=== PATIENT | female | born 1980 | race Caucasian/White ===

== ENCOUNTER 2017-06-02 08:36 | Emergency (ER) | payer OTHER ==
[2017-06-02 08:46] VITALS: BP 125/60
[2017-06-02] MEDS ORDERED: Tetracaine 0.5% OPTH.SOL 4 ML* 1 DROP BTL LEFT EYE ONE (08:50)
[2017-06-02] MEDS ORDERED: Fluorescein Sod TOPICAL 0.6* 0.6 MG TEST OPHTHALMIC ONE (08:50)
--- NOTE | 2017-06-02 09:03 | UC ---
Eye Complaint HPI - History of Current Complaint Chief Complaint: UCEye Stated Complaint: eye irritation Time Seen by Provider: 06/02/17 08:47 Hx Obtained From: Patient Hx Last Menstrual Period: 05/29/17 ?: No Onset/Duration: Sudden Onset - awoke in night with pain L eye "like there is something in it" Timing: Constant Severity Initially: Moderate Severity Currently: Moderate Pain Intensity: 6 Location of Injury: Eye Lid (upper) Character: Sharp, Foreign Body Sensation Aggravating Factor(s): Light, Blinking Alleviating Factor(s): Darkness, Other - keeping eye closed Associated Signs And Symptoms: Positive: Photophobia, Drainage (Clear). Negative: Vision Impairment Left - Allergies/Home Medications Allergies/Adverse Reactions: Allergies Allergy/AdvReac Type Severity Reaction Status Date / Time No Known Allergies Allergy Verified 06/02/17 08:43 PMH/Surg Hx/FS Hx/Imm Hx Previously Healthy: Yes - Surgical History Surgical History: Yes Surgery Procedure, Year, and Place: tonsilectomy age 18 - Family History Known Family History: Positive: None - Social History Occupation: Employed Full-time - teacher Lives: With Family Alcohol Use: Weekly Substance Use Type: Marijuana Smoking Status (MU): Light Every Day Tobacco Smoker Type: Cigarettes Amount Used/How Often: not everyday Length of Time of Smoking/Using Tobacco: 10 years Have You Smoked in the Last Year: Yes Cessation Counseling: Counseled 3+Min - 10 Min - Immunization History Most Recent Tetanus Shot: unknown ? not in past 4 -5 years Review of Systems Constitutional: Negative Skin: Negative Eyes: Photophobia, Other - pain OS ENT: Negative Respiratory: Negative Cardiovascular: Negative Neurological: Negative Psychological: Negative Is Patient Immunocompromised?: No All Other Systems Reviewed And Are Negative: Yes Physical Exam Triage Information Reviewed: Yes Appearance: Well-Appearing, Well-Nourished Vital Signs: Initial Vital Signs Temp 98.8 F 06/02/17 08:43 Pulse 58 06/02/17 08:43 Resp 16 06/02/17 08:43 BP 125/60 06/02/17 08:43 Pulse Ox 99 06/02/17 08:43 Vital Signs Reviewed: Yes Eyes: Positive: Conjunctiva Inflamed - OS, cannot open eye due to pain. denies decreased vision other than tearing making it blurry Respiratory Exam: Normal Cardiovascular Exam: Normal Neurological Exam: Normal Neurological: Positive: Alert Psychological Exam: Normal Skin Exam: Normal Skin: Negative: rashes Procedures - Eye Procedure Alcaine Drops Administered: Yes - fulglow used with gonzales lamp and reveals linear corneal abr. mid L cornea Eye Irrigated w/ Saline (ccs): 60 - no FO detected Eye Complaint Course/Dx - Differential Dx/Diagnosis Differential Diagnosis/HQI/PQRI: Corneal Abrasion, Foreign Body Provider Diagnoses: corneal abrasion L eye Discharge - Discharge Plan Condition: Improved Disposition: HOME Prescriptions: Erythromycin OPHTH.OINT* [Ilotycin OPHTH.OINT*] 1 applic LEFT EYE BEDTIME #1 tube Patient Education Materials: Corneal Abrasion (ED) Referrals: Leonie Ramirez MD [Primary Care Provider] - 2 Days (if no better) Additional Instructions: avoid bright lights and screen time Use ointment as directed and keep eye patched for comfort (may remove if needed) Ibuprofen 800mg every 6 hours as needed for pain return if pain or problems occur at any time
[2017-06-02] MEDS ORDERED: Tetan/Diph/Pertus SYR(Tdap)* 0.5 ML SYR(BOOSTRIX) use SYR IM ONE (09:15)
== END 2017-06-02 09:30 | disposition home or self-care (01) ==
LOC: UCEAST 08:36
DX: S05.02XA Injury of conjunctiva and corneal abrasion without foreign body, left eye, initial encounter (principal); X58.XXXA Exposure to other specified factors, initial encounter; Y93.9 Activity, unspecified; Y92.9 Unspecified place or not applicable; Z23 Encounter for immunization; Z71.6 Tobacco abuse counseling; F17.210 Nicotine dependence, cigarettes, uncomplicated
CPT/HCPCS: 90715; 99202; A9270-GY; G0463

== ENCOUNTER 2019-01-13 16:04 | Emergency (ER) | payer OTHER ==
[2019-01-13 16:28] VITALS: BP 117/76
--- NOTE | 2019-01-13 17:03 | UC ---
Skin Complaint HPI - HPI Summary HPI Summary: Rash on arms and legs, worse at night, pt thinks its scabies - History of Current Complaint Chief Complaint: UCRash Time Seen by Provider: 01/13/19 16:35 Stated Complaint: RASH Hx Obtained From: Patient Hx Last Menstrual Period: 2 wks ago ?: No Onset/Duration: Gradual Onset Skin Exposure Onset/Duration: Days Ago Timing: Constant Onset Severity: Mild Current Severity: Moderate Pain Intensity: 0 Location: Other - Earnest, legs and a few on abdomen Character: Pruritus Aggravating Factor(s): Nothing Alleviating Factor(s): Nothing Associated Signs & Symptoms: Positive: Negative - Allergy/Home Medications Allergies/Adverse Reactions: Allergies Allergy/AdvReac Type Severity Reaction Status Date / Time No Known Allergies Allergy Verified 01/13/19 16:29 PMH/Surg Hx/FS Hx/Imm Hx Previously Healthy: Yes - Surgical History Surgical History: Yes Surgery Procedure, Year, and Place: tonsilectomy age 18 - Family History Known Family History: Positive: None - Social History Lives: With Family Alcohol Use: Occasionally Substance Use Type: None Smoking Status (MU): Light Every Day Tobacco Smoker Type: Cigarettes Amount Used/How Often: not everyday Length of Time of Smoking/Using Tobacco: 10 years Have You Smoked in the Last Year: Yes - Immunization History Most Recent Tetanus Shot: unknown ? not in past 4 -5 years Review of Systems All Other Systems Reviewed And Are Negative: Yes Skin: Positive: Rash - Severe itching" Is Patient Immunocompromised?: No Physical Exam Triage Information Reviewed: Yes Appearance: Well-Appearing, No Pain Distress, Well-Nourished Vital Signs: Initial Vital Signs Temp 97.1 F 01/13/19 16:24 Pulse 76 01/13/19 16:24 Resp 12 01/13/19 16:24 BP 117/76 01/13/19 16:24 Pulse Ox 100 01/13/19 16:24 Vital Signs Reviewed: Yes Skin: Positive: Rashes - scattered rashes on arms, legs and abdomen, some linear Course/Dx - Course Course Of Treatment: Comfortable here, I am going to treat for scabies. Instructions given verbally because computers were down. - Diagnoses Provider Diagnosis: Scabies Discharge ED - Sign-Out/Discharge Documenting (check all that apply): Patient Departure All imaging exams completed and their final reports reviewed: No Studies - Discharge Plan Condition: Good Disposition: HOME Prescriptions: Permethrin [Elimite] 60 gm TP ONCE 1 Days #1 tube Patient Education Materials: Scabies (ED) Referrals: No Primary Care Phys,NOPCP [Primary Care Provider] - Additional Instructions: Launder all bedding. Follow up with your PCP as needed (verbal instructions given to pt because computers were down) - Billing Disposition and Condition Condition: GOOD Disposition: Home
== END 2019-01-13 17:13 | disposition home or self-care (01) ==
LOC: UCEAST 16:04
DX: B86 Scabies (principal); F17.210 Nicotine dependence, cigarettes, uncomplicated
CPT/HCPCS: 99212; G0463